=== PATIENT | male | born 1960 | race Caucasian/White ===

== ENCOUNTER 2018-12-22 02:50 | Emergency (ER) | payer SELFPAY ==
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
[2018-12-22] MEDS ORDERED: Haloperidol Lactate 5 MG/ML SDV IM ONE (03:05)
[2018-12-22] MEDS ORDERED: Sodium Chloride 0.9% 2.5 ML Syringe FLUSH PRN (03:06)
[2018-12-22] MEDS ORDERED: Sodium Chloride 0.9% 10 ML Syringe FLUSH PRN (03:06)
[2018-12-22] MEDS ORDERED: Haloperidol Lactate 5 MG/ML SDV ONE ×2 (03:07→03:26)
[2018-12-22] MEDS ORDERED: Diphtheria,Pertussis(Acell),Tetanus Vaccine 0.5 ML Syringe IM ONE (03:13)
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
[2018-12-22] MEDS ORDERED: ceFAZolin 1 GM in Premix Bag 1 BAG IV ONE (04:49)
== END 2018-12-22 06:40 | disposition home or self-care (01) ==
LOC: MW.ED 02:50
DX: S02.32XA Fracture of orbital floor, left side, initial encounter for closed fracture (principal); S02.40DA Maxillary fracture, left side, initial encounter for closed fracture; S02.40CA Maxillary fracture, right side, initial encounter for closed fracture; S02.40FA Zygomatic fracture, left side, initial encounter for closed fracture; S02.2XXA Fracture of nasal bones, initial encounter for closed fracture; S02.19XA Other fracture of base of skull, initial encounter for closed fracture; S01.511A Laceration without foreign body of lip, initial encounter; F10.129 Alcohol abuse with intoxication, unspecified; Z23 Encounter for immunization; Y09 Assault by unspecified means
CPT/HCPCS: 70450; 70486; 72125; 90471; 90715; 96365; 96375; 99284; J0690; J1630